=== PATIENT | female | born 1990 | race Caucasian/White ===

== ENCOUNTER 2018-10-19 07:01 | Inpatient (IN) | payer MEDICAID ==
[~2018-10-19] VITALS: Ht 154.9 cm; Wt 101.7 kg
[~2018-10-19 07:01] MED LIST: DOCU-144 PO; IBUP-1542 PO; PREN1TAB49
[2018-10-19 07:06] VITALS: Ht 154.9 cm; Wt 101.7 kg
[2018-10-19] MEDS ORDERED: CEFAZOLIN 2 GM/50 ML (PMX) 50 ML IVPB SCH (10:30)
[2018-10-19] MEDS ORDERED: METHYLERGONOVINE 0.2 MG INJ IM PRN ×2 (10:30→15:00)
[2018-10-19] MEDS ORDERED: OXYTOCIN 30 UNITS/LR 500 ML IV PRN ×2 (10:30→15:00)
[2018-10-19] MEDS ORDERED: CARBOPROST 250 MCG INJ IM PRN ×2 (10:30→15:00)
[2018-10-19] MEDS ORDERED: MISOPROSTOL 200 MCG TAB PR PRN ×2 (10:30→15:00)
--- NOTE | 2018-10-19 10:36 | HP ---
Date/Time of Note Date/Time of Note DATE: 10/19/18 TIME: 10:27 OB - History Hx of Present Free Text/Dictation Patient is a 27-year-old 5 para 3 at 37 weeks of gestation with estimated date of delivery of November 09, 2018 Patient presents in labor with regular contractions every 2 to 3 minutes Patient was receiving care in [place] and she was told yesterday that she should have for this because of the size of the baby Patient reports a history of delivering 9+ pound baby which was complicated by shoulder dystocia and vaginal laceration She is requesting to have a for this Patient also reports an abnormal 1 hour glucose challenge test which is a 3-hour tolerance test was never performed Patient reports positive movement, denies vaginal bleeding and leaking fluid Estimated Due Date: Nov 09, 2018 : 5 Para: 3 Care: Limited Care Obstetrical Complications: Gestational Diabetes Medical Complications: None Past Family/Social History * Past Medical, Surgical, Family and Obstetric Histories reviewed from chart. OB Admission Exam Physical Exam HEENT: WNL Heart: Rhythm Normal Lungs: Clear, Equal Abdomen: WNL Extremities: Normal Reflexes: Normal Cervical Dilatation: 2cm Effacement: 50% Station: -3 Membranes: Intact Heart Rate: 140's Accelerations: Accelerations Present Decelerations: No Decelerations Varibility: Moderate Contractions on Admission: < 5 Minutes Apart Intensity: Moderate Last 72 hours Lab Results PROCEDURE: US OB. CLINICAL INDICATION: Estimated weight. Macrosomia. TECHNIQUE: Transabdominal views of the pelvis are available for review. COMPARISON: None FINDINGS: Noted is a single intrauterine gestation in cephalic lie with positive heart beat measuring 141 beats per minute. Biparietal diameter measures 9.5 cm corresponding to a gestational age 38 weeks 5 days. Femur length measures 7.3 cm corresponding to a gestational age 37 weeks 2 days. The abdominal circumference measures 38.7 cm. This is out of range for age. Estimated weight is 4133 g. Estimated date of delivery by ultrasound criteria is November 02. The FL/AC ratio measures 18.8 with normal greater than 20 and the HC/AC ratio is 0.86 with normal greater than 0.9. The FL/AC and FL/BPD ratios are normal. Findings are compatible with macrosomia. Amniotic fluid index was not measured but the volume is qualitatively normal. Placenta is anterior left lateral grade II without evidence of previa. The maternal cervix was not imaged. No gross anomaly is seen, however, no anatomic survey was performed. IMPRESSION: Single intrauterine gestation cephalic lie with positive heart beat of estimated gestational age 38 weeks 0 days. Estimated weight 4133 g. Findings are compatible with macrosomia. Left anterolateral grade II placenta. Fluid qualitatively within normal limits. .Sujit Villa MD, Date Time Electronically viewed and signed by .Sujit Villa MD, on 10/19/2018 08:37 .A/ CC: MOISÉS BRAN MD [id number] PROCEDURE: US OB biophysical profile. CLINICAL INDICATION: Contractions TECHNIQUE: Multiple sonographic images of the pelvis were obtained. The images were reviewed on a PACS workstation. COMPARISON: None. FINDINGS: Single live intrauterine gestation. Amniotic fluid index = 13.6 cm. Cardiac activity is present with 152 beats per minute. Cephalic presentation. Placental location is anterior. No evidence of previa or abruption. Biophysical profile as follows: movement 2/2 tone 2/2 breathing 2/2 CLIFF 2/2 Total 10/17 IMPRESSION: Biophysical profile 10/17. CLIFF = 13.2 cm RPTAT: [facility] Physician Jaimei Date Time Electronically viewed and signed by Physician Jaimie on 10/19/2018 08:53 xB/ CC: MOISÉS BRAN MD [id number] OB Assessment/Plan Reason for admission: active labor, section ( macrosomia) Other plan: Admit to labor and delivery Plan for primary for suspected macrosomia with estimated weight of 4133 g All benefits and risks of primary were discussed in great details with the patient. She understands all risks including but not limited to infection, bleeding, possible trauma to other organs including bladder and bowel. Patient understands her plan of care and agrees to proceed MOISÉS BRAN MD Oct 19, 2018 10:36
[2018-10-19] MEDS: LACTATED RINGER'S 1,000 ML IV SCH ×2 (10:53→12:35)
[2018-10-19 11:14] VITALS: BP 105/57; PULSE 80; RESP 20
--- NOTE | 2018-10-19 11:38 | PREAC ---
Date/Time of Note Date/Time of Note DATE: 10/19/18 TIME: 11:36 Anesthesia Eval and Record Evaluation Time Pre-Procedure Interview DATE: 10/19/18 TIME: 11:36 Age 27 Sex female NPO: 8 hrs Preoperative diagnosis IUP in labor, macrozomia Planned procedure c section Past Medical History Past Medical History: None Surgery & Anesthesia Issues No known issue Meds Anticoagulation: No Beta Floridalma within 24 hr: No Reason Beta Floridalma not given: Pt. not on B-Floridalma Reported Medications Vits W-Ca,Fe,Fa(<1MG) () 1 Tab Tablet 12/14/09 Current Medications Lactated Ringer's 1,000 ml @ 125 mls/hr Q8H IV Last administered on 10/19/18at 10:53; Admin Dose 125 MLS/HR; Start 10/19/18 at 10:08 Cefazolin Sodium/ Dextrose 50 ml @ 100 mls/hr ONCE IVPB ; Start 10/19/18 at 10:30 Oxytocin/Lactated Ringer's 500 ml @ 0 mls/hr ONCE PRN IV .VAGINAL BLEEDING; Start 10/19/18 at 10:30 Methylergonovine Maleate (Methergine) 0.2 mg ONCE PRN IM .VAGINAL BLEEDING; Start 10/19/18 at 10:30 Carboprost Tromethamine (Hemabate) 250 mcg ONCE PRN IM .VAGINAL BLEEDING; Start 10/19/18 at 10:30 Misoprostol (Cytotec) 1,000 mcg ONCE PRN OH .VAGINAL BLEEDING; Start 10/19/18 at 10:30 Oxytocin/Lactated Ringer's 500 ml @ 125 mls/hr Q4H IV ; Start 10/19/18 at 11:30 Meds reviewed: Yes Allergies Coded Allergies: No Known Drug Allergies (Verified Allergy, Unknown, 10/19/18) Allergies Reviewed: Yes Labs/Studies Labs Reviewed: Reviewed by anesthesiologist Result Diagram: 10/19/18 1034 Laboratory Tests 10/19/18 10:34 Blood Bank Test 10/19/18 10:34 Blood Type O POSITIVE Rh Immune Globulin Candidate NO test: Positive Studies: ECG (n/a), CXR (n/a) Pre-procedure Exam Last vitals Vital Signs Date Temp Pulse Resp B/P (MAP) Pulse Ox O2 O2 Flow FiO2 Time Delivery Rate 10/19/18 98.3 80 20 105/57 Room Air 11:14 (73) Airway: Adequate mouth opening Mallampati: Mallampati I Teeth: Normal Lung: Normal Heart: Normal ASA Physical Status ASA physical status: 2 Emergency: None Planned Anesthetic Neuraxial: Spinal Planned Pain Management Single shot nerve block Pre-operative Attestations Prior to commencing anesthesia and surgery, the patient was re-evaluated, there was verification of: *The patient's identity *The results of appropriate recent lab work and preoperative vital signs *The above evaluation not changing prior to induction *Anesthetic plan, risk benefits, alternative and complications discussed with p atient/family; questions answered; patient/family understands, accepts and wishes to proceed. SERGE LEON MD Oct 19, 2018 11:38
[2018-10-19] MEDS ORDERED: CITRIC ACID/NA CITRATE 30 ML CUP ONE (11:40)
[2018-10-19] MEDS ORDERED: CITRIC ACID/NA CITRATE 30 ML CUP PO ONE (12:00)
[2018-10-19] MEDS ORDERED: OXYTOCIN 30 UNITS/LR 500 ML IV ONE (12:58)
[2018-10-19] MEDS ORDERED: morphine SULFATE/PF (10 MG/10 ML) INJ ONE (12:58)
[2018-10-19] MEDS ORDERED: ONDANSETRON 4 MG INJ ONE (12:58)
[2018-10-19] MEDS ORDERED: METOCLOPRAMIDE 10 MG INJ ONE (12:58)
[2018-10-19] MEDS ORDERED: KETOROLAC 30 MG INJ ONE (12:58)
[2018-10-19] MEDS ORDERED: EPHEDrine 25 MG/5 ML SYG ONE (13:13)
[2018-10-19] MEDS ORDERED: FENTAnyl 50 MCG/ML VIAL ONE ×2 (13:49→14:07)
[2018-10-19] MEDS ORDERED: DIPHENHYDRAMINE 50 MG INJ ONE (14:17)
[2018-10-19] MEDS ORDERED: LACTATED RINGER'S 1,000 ML IV SCH (14:34)
[2018-10-19] MEDS: OXYTOCIN 30 UNITS/LR 500 ML IV SCH ×6 (14:34→23:30)
--- NOTE | 2018-10-19 14:41 | OPR ---
Operative Report Planned Procedure Free Text/Dictation 27-year-old 5 para 3 at term gestation in active labor suspected for macrosomia with history of shoulder dystocia requesting primary Patient also reports abnormal 1 hour glucose challenge test Procedure date Oct 19, 2018 Procedure(s) Primary low transverse section Performed by see signature line Copyman: CIERRA MARIN MD Pre-procedure diagnosis 1. Suspected macrosomia 2. Active labor 3. History of shoulder dystocia 4. Abnormal glucose testing suspected for gestational diabetes [id number] Anesthesia Type: [id number] spinal Post-Procedure Post-procedure diagnosis 1. Suspected macrosomia 2. Active labor 3. History of shoulder dystocia 4. Abnormal glucose testing suspected for gestational diabetes Findings Live Baby [girl], Apgars [9] and [9], weight [8 pounds 1 ounces/ 3660 g], [vertex] presentation EBL 700 cc IV fluid 1800 cc Urine output 400 cc Estimated Blood Loss: 600 - 700 mls Specimen(s) None Grafts/Implant(s) none Complication(s) none Pt Condition post procedure: stable Disposition: PACU Procedure Description Patient was taken to the operating room after adequate amount of anesthesia was given patient was prepped and draped in normal sterile fashion Low transverse Pfannenstiel skin incision was made with a scalpel. Incision was carried through to the underlying layer of fascia using Bovie Fascia was incised in the midline and incision was extended bilaterally using Bovie Both anterior and posterior edge of the fascia were from underlying layer of rectus muscles Rectus muscles were in the midline and peritoneum was identified and entered sharply without any difficulty Peritoneum was extended bilaterally manually. A bladder flap was created. Then a low transverse uterine incision was made on the uterus Fetus was delivered from vertex presentation and after 30 seconds delayed cord clamping the fetus was handed immediately to the waiting ICU team Placenta was delivered manually intact. Uterus was cleared off of all clots and debris Uterine incision was closed with 1 Monocryl suture in both running locked and a second layer imbricating fashion Multiple irrigations were performed and excellent hemostasis was noted. Both adnexa appeared normal Peritoneal closure proceeded with 2-0 Monocryl in a running fashion. Rectus muscles were reapproximated with 2-0 Monocryl Fascia was closed with 1 Vicryl suture in 2 separate segments in a running fashion Subcutaneous layer was closed with 2-0 plain suture in a continuous fashion Skin was closed with end-sorb mary and Dermabond glue All sponge, lap, needle counts were reported to be correct Patient tolerated the procedure well and taken back to recovery room in a stable condition MOISÉS BRAN MD Oct 19, 2018 14:41
[2018-10-19] MEDS ORDERED: KETOROLAC 30 MG INJ IV PRN (15:00)
[2018-10-19] MEDS ORDERED: morphine 2 MG INJ IV PRN ×6 (15:00)
[2018-10-19] MEDS ORDERED: NALOXONE (0.4 MG/ML) INJ IV PRN (15:00)
[2018-10-19] MEDS ORDERED: BISACODYL 10 MG SUPP PR PRN (15:00)
[2018-10-19] MEDS ORDERED: DIPHENHYDRAMINE 50 MG INJ IV PRN (15:00)
[2018-10-19] MEDS ORDERED: ACETAMINOPHEN 325 MG TAB PO PRN (15:00)
[2018-10-19] MEDS ORDERED: ONDANSETRON 4 MG INJ IV PRN ×3 (15:00)
[2018-10-19] MEDS ORDERED: MAGNESIUM HYDROXIDE 30ML CUP PO PRN (15:00)
[2018-10-19] MEDS ORDERED: LANOLIN HPA 1 PKT TOP PRN (15:00)
[2018-10-19 17:10] VITALS: BP 102/54; PULSE 68; RESP 18
[2018-10-19] MEDS: CEFAZOLIN 1 GM/50 ML (PMX) 50 ML IVPB SCH (18:01)
[2018-10-19 19:45] VITALS: BP 97/50; PULSE 64; RESP 18
[2018-10-19] MEDS: SENNA/DOCUSATE NA (8.6MG/50MG) TAB PO PRN (21:05)
[2018-10-20 00:30] VITALS: BP 94/50; PULSE 70; RESP 17
[2018-10-20] MEDS: CEFAZOLIN 1 GM/50 ML (PMX) 50 ML IVPB SCH ×2 (01:18→10:11)
--- NOTE | 2018-10-20 03:07 | PAC ---
Date/Time of Note Date/Time of Note DATE: 10/20/18 TIME: 03:06 Post-Anesthesia Notes Post-Anesthesia Note Last documented vital signs Vital Signs Date Temp Pulse Resp B/P (MAP) Pulse Ox O2 O2 Flow FiO2 Time Delivery Rate 10/20/18 97.8 70 17 94/50 (65) 96 Room Air 00:30 Activity: WNL Respiratory function: WNL Cardiovascular function: WNL Mental status: Baseline Pain reasonably controlled: Yes Hydration appropriate: Yes Nausea/Vomiting absent: No SERGE LEON MD Oct 20, 2018 03:07
--- NOTE | 2018-10-20 03:08 | OPPN ---
Date/Time of Note Date/Time of Note DATE: 10/20/18 TIME: 03:07 Anesthesia Follow up Anesthesia Follow up Last documented vital signs Vital Signs Date Temp Pulse Resp B/P (MAP) Pulse Ox O2 O2 Flow FiO2 Time Delivery Rate 10/20/18 97.8 70 17 94/50 (65) 96 Room Air 00:30 Respiratory function: WNL Cardiovascular function: WNL Comments A 27 year s/p spinal duramorph for post op apin, POD#1 is fine. pain is controlled, No itching, N/V, headache, neural deficit, or SOB. SERGE LEON MD Oct 20, 2018 03:08
[2018-10-20] MEDS: OXYTOCIN 30 UNITS/LR 500 ML IV SCH (03:30)
[2018-10-20 03:48] VITALS: BP 90/50; PULSE 60; RESP 17
[2018-10-20] MEDS: LACTATED RINGER'S 1,000 ML IV SCH ×3 (04:27→18:08)
[2018-10-20] MEDS: KETOROLAC 30 MG INJ IV PRN ×2 (05:15→12:13)
[2018-10-20 08:00] VITALS: BP 98/46; PULSE 70; RESP 17
[2018-10-20 12:00] VITALS: BP 100/50; PULSE 77; RESP 17
--- NOTE | 2018-10-20 13:34 | QN ---
Documentation Comment POD#1 is stable afebrile tolerates diet No VB +Flatus +voids VS stable Gen NAD Abd soft NT ND Incision intact Genitalia No blood at Perineum --->Discharge Home tomorrow --->precautions discussed CANDICE DEJESUS M.D. Oct 20, 2018 13:34
[2018-10-20 16:00] VITALS: BP 103/56; PULSE 85; RESP 18
[2018-10-20] MEDS: OXYCODONE/ACETAMINOPHEN (5/325) TAB PO PRN ×2 (16:48→20:33)
[2018-10-20 19:25] VITALS: BP 105/58; PULSE 70; RESP 18
[2018-10-20] MEDS: SENNA/DOCUSATE NA (8.6MG/50MG) TAB PO PRN (20:33)
[2018-10-21] MEDS: OXYCODONE/ACETAMINOPHEN (5/325) TAB PO PRN ×4 (00:01→17:06)
[2018-10-21] MEDS: IBUPROFEN 600 MG TAB PO PRN ×4 (00:02→19:02)
[2018-10-21 04:20] VITALS: BP 87/44; PULSE 61; RESP 18
[2018-10-21 08:00] VITALS: BP 106/58; PULSE 72; RESP 18
[2018-10-21] MEDS ORDERED: LACTATED RINGER'S 1,000 ML IV ONE (09:30)
--- NOTE | 2018-10-21 10:39 | DS ---
Date/Time of Note Date/Time of Note DATE: 10/21/18 TIME: 10:38 Obstetrical Discharge Record Final Diagnosis Final Diagnosis: Term delivered Other Final Diagnosis Hospital day: 3 ERP SHARI 11/09/18 labs: Blood type: O+ Rubella: immune HepBSAg: nonreactive RPR: NR HIV: negative GC/CT: negative 1. Repeat - admitted on 10/19/2018 for labor with a history of shoulder dystocia. She delivered via elective on 10/19/2018 at 37 weeks. Femal infant weighing 3660 g. EBL 700 ml. Hospital course was complicated by acute blood loss anemia. No apparent distress. Fundus firm and below the level of the umbilicus. Cardiovascular regular rate and rhythm. Pulmonary clear to auscultation bilaterally. Incision clean dry intact. Extremities nontender to palpation. Tolerated a regular diet prior to discharge. Pain well controlled. Lochia within normal limits. Breast feeding. Nexplanon desired for contraception. 2. Acute blood loss anem-H/H 9.6/29.4. Am cbc pending. Asymptomatic prior to discharge. Orthostatics prior to discharge 98/54 and 97/56 (stand). LR 1 L bolus prior to discharge. Section Section: Primary Condition on Discharge Physical Assessment Patient Condition: Stable MILESTONE,JULIO C SARKAR Oct 21, 2018 10:39
[2018-10-21 16:03] VITALS: BP 114/56; PULSE 81; RESP 18
[2018-10-21 20:00] VITALS: BP 97/53; PULSE 70; RESP 16
[2018-10-22] MEDS: IBUPROFEN 600 MG TAB PO PRN ×3 (00:23→12:29)
[2018-10-22] MEDS: OXYCODONE/ACETAMINOPHEN (5/325) TAB PO PRN ×2 (00:23→09:19)
[2018-10-22] MEDS: SENNA/DOCUSATE NA (8.6MG/50MG) TAB PO PRN ×2 (00:23→09:19)
[2018-10-22 04:00] VITALS: BP 87/46; PULSE 60; RESP 16
--- NOTE | 2018-10-22 09:07 | QN ---
Documentation Comment POD#3 is stable afebrile tolerates diet No VB +BM +voids VS stable Gen NAD Abd soft NT ND Incision intact Genitalia No blood at Perineum --->Discharge Home --->precautions discussed CANDICE DEJESUS M.D. Oct 22, 2018 09:06
--- NOTE | 2018-10-22 09:07 | DS ---
Date/Time of Note Date/Time of Note DATE: 10/22/18 TIME: 09:07 Discharge Summary Admission/Discharge Info Admit Date/Time Oct 19, 2018 at 10:05 Discharge Date/Time Discharge Diagnosis Patient Condition: Good Hospital Course Uneventful Home Meds Active Scripts Docusate Sodium* (Colace*) 100 Mg Capsule, 100 MG PO BID for 30 Days, #60 CAP Prov:JULIO C CA MD 10/21/18 Ibuprofen* (Ibuprofen*) 600 Mg Tablet, 600 MG PO Q6H PRN for PAIN for 30 Days, #90 TAB Prov:JULIO C CA MD 10/21/18 Reported Medications Vits W-Ca,Fe,Fa(<1MG) () 1 Tab Tablet 12/14/09 Primary Care Provider Not On Staff Doctor CANDICE DEJESUS M.D. Oct 22, 2018 09:07
[2018-10-22 09:19] VITALS: BP 101/66; PULSE 73; RESP 18
--- NOTE | 2018-10-23 16:12 | DELSUM ---
Delivery Summary A-C Datetime Report Generated by CPN: 10/23/2018 16:12 DELIVERY PERSONNEL Car [employer] [place]: [place], May MATERNAL INFORMATION Delivery Anesthesia: Spinal Medications in Delivery: see anesthesia Delivery QBL (ml): 700 Placenta Cultured: No Maternal Complications: Other Other Maternal Complications: macrosomia, historyof previous shoulder dystocia LABOR SUMMARY EDC: 11/09/2018 00:00 No. Babies in Womb: 1 Attempted: No Labor Anesthesia: None LABOR INFORMATION Reason for Induction: Not Applicable Onset of Labor: 10/19/2018 04:00 Group B Beta Strep: Negative Antibiotics # of Doses: 2 Antibiotics Time of Last Dose: 10/19/2018 13:24 Steroids Given: None Reason Steroids Not Administered: Not Applicable MEMBRANES Membranes Rupture Method: Artificial Rupture of Membranes: 10/19/2018 13:38 Length of Rupture (hr): 0.02 Amniotic Fluid Color: Clear Amniotic Fluid Amount: Large Amniotic Fluid Odor: None STAGES OF LABOR Stage 3 hr: 0 Stage 3 min: 1 Total Time in Labor hr: 9 Total Time in Labor min: 40 CSECTION DELIVERY Primary Indication: Other Other Primary Indication: macrosomia Secondary Indication: N/A CSection Urgency: Non Elective CSection Incidence: Primary Labor: Labor Elective: Nonelective CSection Incision: Lower Uterine Transverse BABY A INFORMATION Infant Delivery Date/Time: 10/19/2018 13:39 Method of Delivery: Born in Route : No : N/A Forceps: N/A Vacuum Extraction: N/A Shoulder Dystocia : N/A SHOULDER DYSTOCIA BABY A Delivery Date/Time: 10/19/2018 13:39 PRESENTATION/POSITION BABY A Presentation: Cephalic Cephalic Presentation: Vertex Vertex Position: Right Occipital Anterior Breech Presentation: N/A PLACENTA INFORMATION BABY A Placenta Delivery Time : 10/19/2018 13:40 Placenta Method of Delivery: Manual Removal Placenta Status: Delivered SCORES BABY A Heart Rate 1 min: >100 bpm Resp Effort 1 min: Good Cry Reflex Irritability 1 min: Cough/Sneeze/Pulls Away Muscle Tone 1 min: Active Motion Color 1 min: Body Sea Breeze, Extremit Blue Resuscitation Effort 1 min: Tactile Stimulation SCORE 1 MIN: 9 Heart Rate 5 min: >100 bpm Resp Effort 5 min: Good Cry Reflex Irritability 5 min: Cough/Sneeze/Pulls Away Muscle Tone 5 min: Active Motion Color 5 min: Body Sea Breeze, Extremit Blue Resuscitation Effort 5 min: Tactile Stimulation SCORE 5 MIN: 9 INFORMATION BABY A Gestational Age at Delivery: 37.0 Gestational Status: Early Term- 37- 38.6 Weeks Outcome : Liveborn, with signs of life Condition : Stable Sex: Female IDENTIFICATION/MEDS BABY A ID Band Number: [id number] ID Band Location: Right Leg; Left Arm Sensor Applied: Yes Sensor Number: [id number] Sensor Location : Cord Clamp Vitamin K Given : Not Given Erythromycin Given: Not Given WEIGHT/LENGTH BABY A Birthweight (gm): 3660 Weight (lb): 8 Infant Weight (oz): 1 Length (in): 19.00 Length (cm): 48.26 CORD INFORMATION BABY A No. Cord Vessels: 3 Nuchal Cord : N/A Cord Blood Taken: Yes Suction: Mouth; Nose ASSESSMENT BABY A Infant Complications: None Physical Findings at Delivery: Within Normal Limits Respirations: Appears Normal Research Compliance Specialist/ALS Called : No Care By: MARY/CHANTELL Transferred To: Remains with Mother
== END 2018-10-22 14:35 | disposition home or self-care (01) | DRG 787 ==
LOC: OBT 07:01 → L-D 07:03 → OBT 10:05 → L-D 10:05 → PP1 17:19
PROVIDERS: ADMIT Obstetrics & Gynecology Gynecology; ATTEND Obstetrics & Gynecology Gynecology
PROC: 10D00Z1 Extraction of Products of Conception, Low, Open Approach (ICD-10-PCS; principal; 2018-10-19 13:00)
DX: O36.63X0 Maternal care for excessive fetal growth, third trimester, not applicable or unspecified (principal); O90.81 Anemia of the puerperium; D62 Acute posthemorrhagic anemia; Z3A.37 37 weeks gestation of pregnancy; Z37.0 Single live birth; O34.219 Maternal care for unspecified type scar from previous cesarean delivery
CPT/HCPCS: 76815; 76818; 80053; 80307; 82947; 85025; 85610; 85730; 86592; 86703; 86803; 86850; 86900; 86901; 87340; 99464; G0463; J0690; J1200; J1885; J2274; J2405; J2590; J2765; J3010; J7120